=== PATIENT | female | born 1970 | race Caucasian/White ===

== ENCOUNTER → 2021-06-03 11:52 | Outpatient (CLI) | payer OTHER, SELFPAY ==
--- NOTE | ~2021-06-03 | US_ITS ---
EXAMINATION: US pelvic complete w TV DATE: 06/03/2021 12:55 INDICATION: Menorrhagia Comparison:No prior studies for comparison. TECHNIQUE: Multiple transabdominal and endovaginal sonographic images of the pelvis performed. FINDINGS: The uterus measures 9.9 x 4.6 x 5.4 cm. The endometrial complex measures 7 mm. The right ovary measures 2 x 1.6 x 1.4 cm and the left ovary measures 1.8 x 1.4 x 0.9 cm. There are small follicles in each ovary. Normal doppler signal in both ovaries. There is no free fluid in the pelvis. There are no abnormal masses seen on either side. IMPRESSION: 1. Normal pelvic ultrasound. Reviewed, dictated and finalized at location [facility]
== END ==
PROVIDERS: PCP Family Medicine; Visit Provider Obstetrics & Gynecology
DX: N92.0 Excessive and frequent menstruation with regular cycle (principal)
CPT/HCPCS: 76830; 76856

== ENCOUNTER 2022-01-23 00:46 | Day surgery (SDC) | payer BC, SELFPAY ==
[2022-01-17 10:15] VITALS: BMI 22.0
--- NOTE | 2022-01-17 10:24 | PC.NURSE ---
Report to the Outpatient Waiting Room, entrance under the green pavilion located off [facility], at time 0700 on date 01/23/22. OR Time: 0900. - You and your visitor will be asked a series of questions to screen for COVID 19 for your protection. - Only one visitor is allowed at this time. - The patient visitor is requested to leave or wait in car when not with patient. - A mask is required within the hospital. Patients may have clear liquids (water, carbonated beverages, clear teas, apple juice) until 3 hours prior to surgery with a maximum of 20 ounces. - No food from midnight until time of surgery Take the following medications with a SIP of water the morning of surgery: NONE Medications to discontinue per physician: N/A Date to take last dose: N/A Please no make-up, nail danish, hairspray, perfume, deodorant, or body powder the day of surgery. No jewelry (including any body piercings) or valuables the day of surgery, leave them at home. Please take a shower or bath the night before, or the morning of, surgery with an antibacterial soap. Wear comfortable, loose fitting clothing. Children are encouraged to wear pajamas. - Jewelry must be removed prior to entering the operating room. Rings and piercings that are not removed may be cut off. - The hospital will not accept responsibility for valuables. - Please leave all valuables, including medications, at home the day of surgery. If you are going home after surgery, a licensed chuck wagon driver must drive you home. - NO public transportation without another adult. - We recommend that an adult stay with you for 24 hours following discharge. - We also recommend that you do not drive, make important decision, drink alcoholic beverages, or take any drugs that were not prescribed by your health care provider for at least 24 hours after your discharge time. Follow any additional instructions given to you from your surgeon. If you or anyone in your household have experienced Covid symptoms in the past week, please notify your surgeon or the nurse liaison at the phone number below for possible testing. Telephone instructions given to PT - HUGO LOPEZ and asked if any additional questions and then verbalized understanding. Patient advised to call surgeon office or pre surgery nurse liaison [phone] if any additional questions.
--- NOTE | 2022-01-22 10:02 | PM.IMHP ---
H&P: HPI History of Present Illness Date/Time: 01/22/22 10:02 51-year-old female presents for treatment of heavy vaginal bleeding and anemia. Cycles have been 7-10 days with 5-7 days heavy clotting cramping to the point where she bleeds through her clothes and please through on to her bed at night. Has been on norethindrone 5mg daily which has helped to temporize. She also has been diagnosed with anemia is undergoing treatment with her primary care regarding iron infusions. Also discussed salpingectomy for control she states good understanding and understands the permanence failure rate risk in regret. Chief Complaint: menometrorrhagia Review of Systems Review of Systems: All systems reviewed & are unremarkable except as noted in HPI and below PMFSH Past Medical History Medical History Abnormal Pap smear of cervix (09/09/16) ascus neg hpv - Lipoma (~1989) removed from shoulder area Pneumonia (~05/2017) Surgical History Surgical History History of appendectomy (02/08/05) History of cholecystectomy (~2005) History of tonsillectomy (~1984) Family History Family History Father Diabetes mellitus Mother Diabetes mellitus Other Breast cancer paternal aunt Social History Social History Smoking status: Never smoker Second hand tobacco smoke exposure: No Alcohol intake: never Substance use: never Substance use type: does not use Living arrangements: with family Additional living arrangements comments: Additional occupation/education comments: lab sales Gender identity (if verbalized by the patient): Female Sexual Orientation (if Verbalized by the Patient): Straight or Heterosexual Spiritual care concerns: No Meds Home Medications and Allergies Home Medications Medication Instructions Recorded Confirmed Type norethindrone acetate 5 mg tablet 5 mg PO DAILY #30 tabs 01/08/22 01/17/22 Rx Allergies Allergy/AdvReac Type Severity Reaction Status Date / Time tetracycline Allergy Unknown Rash Verified 01/17/22 10:14 Exam Const: General: cooperative, healthy appearing and comfortable Resp: Effort & Inspection: normal respiratory effort Auscultation: clear to auscultation bilaterally Cardio: Rate: regular rate Rhythm: regular rhythm GI: Inspection: normal to inspection Auscultation: normal bowel sounds : External Female Exam: normal external appearance Speculum Exam - Vagina: normal appearance of the vagina Speculum Exam - Cervix: normal appearance of the cervix Bimanual exam- vagina & uterus: normal bimanual exam Bimanual Exam- Adnexa, other: normal adnexae Assessment and Plan Assessment and plan (1) Menometrorrhagia: Code(s): N92.1 - Excessive and frequent menstruation with irregular cycle Status: Acute Assessment and Plan: proceed with hysteroscopy D&C endometrial ablation (2) Iron deficiency anemia: Code(s): D50.9 - Iron deficiency anemia, unspecified Status: Acute (3) Encounter for female sterilization procedure: Code(s): Z30.2 - Encounter for sterilization Status: Acute Assessment and Plan: proceed with laparoscopic bilateral salpingectomy
[2022-01-23] VITALS (8 sets, daily range): BP systolic 91–128; BP diastolic 51–73; PULSE 73–93; RESP 12–16; TEMP 36.5–36.8; O2SAT 99–100
--- NOTE | 2022-01-23 07:12 | WPDHPUPDATE1 ---
History and Physical Update Update Date/Time: 01/23/22 07:12 History and Physical has been reviewed, including an updated exam of the patient. There are NO changes in the patient's condition. Risks, benefits, and alternatives have been discussed and questions answered. Patient agrees to proceed with procedure.
[2022-01-23] MEDS: ACETAMINOPHEN 500 MG TABLET 1000 MG PO (07:35)
[2022-01-23] MEDS: KETOROLAC 15 MG/ML VIAL (*BKC) IV PUSH (07:44)
[2022-01-23] MEDS: LACTATED RINGERS 1,000 ML 30 ML IV CONT (07:46)
--- NOTE | 2022-01-23 07:47 | WPDANESEPPF ---
Anes - Initial Pre Proc Eval Procedure: Operation Date: 01/23/22 09:00 Proposed Procedures p Hysteroscopy Dilation and Curettage, Shyla Endometrial Ablation, Laparoscopic Bilateral Salpingectomy - Thor Ambriz MD Date/Time: 01/23/22 07:47 Surgeon: Thor Ambriz MD Pre Op Diagnosis: Vag Bleeding, Desires Sterilization Patient Data Age: 51 Gender: F Height: 1.73 m Weight: 66.75 kg Last Vital Signs Temp 36.8 C 01/23/22 07:18 Pulse 84 01/23/22 07:18 Resp 16 01/23/22 07:18 BP 124/57 L 01/23/22 07:18 Pulse Ox 100 01/23/22 07:18 O2 Del Method Room Air 01/23/22 07:18 Allergies Allergy/AdvReac Type Severity Reaction Status Date / Time tetracycline Allergy Intermediate Rash Verified 01/23/22 07:31 Home Medications Medication Instructions Recorded Confirmed Type norethindrone acetate 5 mg tablet 5 mg PO DAILY #30 tabs 01/08/22 01/23/22 Rx Patient hx anesthesia problems: none Family hx anesthesia problems: none Results Review: All pre-operative results and documents have been reviewed as part of the pre-operative evaluation. [facility] Past Medical History Medical History Abnormal Pap smear of cervix (09/09/16) ascus neg hpv - Lipoma (~1989) removed from shoulder area Pneumonia (~05/2017) Surgical History Surgical History History of appendectomy (02/08/05) History of cholecystectomy (~2005) History of tonsillectomy (~1984) Family History Family History Father Diabetes mellitus Mother Diabetes mellitus Other Breast cancer paternal aunt Social History Social History Smoking status: Never smoker Second hand tobacco smoke exposure: No Alcohol intake: never Substance use: never Substance use type: does not use Living arrangements: with family Additional living arrangements comments: Additional occupation/education comments: lab sales Gender identity (if verbalized by the patient): Female Sexual Orientation (if Verbalized by the Patient): Straight or Heterosexual Spiritual care concerns: No Anes - Eval Final PreProcedure Day of Procedure 01/23/22 07:47 Patient weight: normal Heart: regular rate and rhythm Lungs: clear to auscultation Airway: Mallampati scale class 1 Neurological: alert and oriented Last oral intake: >/= 8 hours ASA classification: I Emergent: no Anesthetic plan: proceed Anesthesia type and monitoring: general ETT and standard monitoring Results Review: All pre-operative results and documents have been reviewed as part of the pre-operative evaluation. Informed Consent: The patient's anesthetic plan and its attendant risks and benefits were discussed with the patient/family/POA. Questions were solicited and answers provided to the satisfaction of the patient/family/POA.
[2022-01-23 07:52] LABS: Hematocrit 27.5 % (37.0-47.0)
--- NOTE | 2022-01-23 08:34 | W.PM.PROC2 ---
Procedure Note - Detailed Date of Procedure 01/23/22 Pre-op Diagnosis 1. Menometrorrhagia 2. Undesired fertility Post-op Diagnosis Same Procedure Performed 1. Hysteroscopy with endometrial curettings 2. Endometrial ablation 3. Laparoscopic bilateral salpingectomy Surgeon Thor Ambriz MD Anesthesia General Findings 1. Laparoscopic evaluation revealed mildly enlarged uterus/ovaries and tubes noted without abnormality. 2. Hysteroscopic evaluation revealed thickened lining. Description of Procedure Patient was prepped and draped in usual manner for this procedure. Periumbilical and bilateral lower trocar sites were placed under direct visualization. Findings were noted as above and using the Harmonic scalpel mesial salpinx was cauterized and cut bilaterally and tubes were removed without difficulty. There was no bleeding. Gas was allowed to escape instruments removed and incisions approximated using 4-0 Monocryl. Cervix was dilated to allow the hysteroscope to place which did reveal thickened endometrium with no specific polyps or fibroids. Curettings were obtained. Once this was performed the Shyla instrument was placed and endometrial ablation was performed with good results. At this point patient was sent to recovery room in stable condition. Estimated Blood Loss 50 Drains No Packing No Pathology Yes Complications No immediate complications Condition Stable Disposition PACU [facility] Billing Surgery - Charge Forward: Surgery Billing
[2022-01-23] MEDS: ceFAZolin 2 GM/D5W 50 ML 2 GM/50 ML BAG IVPB (09:12)
== END 2022-01-23 11:55 | disposition home or self-care (01) ==
PROVIDERS: Anesthesiology; PCP Family Medicine; Visit Provider Obstetrics & Gynecology
PROC: 0UDB8ZZ Extraction of Endometrium, Via Natural or Artificial Opening Endoscopic (ICD-10-PCS; CPT 58558; principal; 2022-01-23 09:00)
DX: N92.1 Excessive and frequent menstruation with irregular cycle (principal); Z30.2 Encounter for sterilization; N72 Inflammatory disease of cervix uteri; N87.9 Dysplasia of cervix uteri, unspecified; D50.9 Iron deficiency anemia, unspecified
CPT/HCPCS: 58563; 58661; 36415; 85014; 85018; 88302; 88305; A9270; J0690; J1100; J1885; J2250; J2405; J2704; J2710; J3010; J7030; J7120

== ENCOUNTER 2022-06-02 01:18 | Day surgery (SDC) | payer BC, SELFPAY ==
[2022-05-27 09:12] VITALS: BMI 22.4
[2022-06-02 11:12] VITALS: BP 140/66; PULSE 88; RESP 18; TEMP 36.4; O2SAT 99; BMI 22.2
[2022-06-02] MEDS: LACTATED RINGERS 1,000 ML 150 ML IV CONT (11:35)
--- NOTE | 2022-06-02 12:06 | WPDANESEPPF ---
Anes - Initial Pre Proc Eval Procedure: Operation Date: 06/02/22 12:30 Proposed Procedures p Colonoscopy - Mitchell Jose MD Date/Time: 06/02/22 12:06 Surgeon: Mitchell Jose MD Pre Op Diagnosis: KAYE Patient Data Age: 51 Gender: F Height: 1.73 m Weight: 66.3 kg Last Vital Signs Temp 97.5 F L 06/02/22 11:12 Pulse 88 06/02/22 11:12 Resp 18 06/02/22 11:12 BP 140/66 06/02/22 11:12 Pulse Ox 99 06/02/22 11:12 O2 Del Method Room Air 06/02/22 11:12 Allergies Allergy/AdvReac Type Severity Reaction Status Date / Time tetracycline Allergy Intermediate Rash Verified 06/02/22 11:20 Home Medications Medication Instructions Recorded Confirmed Type ferrous sulfate 325 mg (65 mg 325 mg PO DAILY 05/26/22 06/02/22 History iron) tablet Patient hx anesthesia problems: none Family hx anesthesia problems: none Results Review: All pre-operative results and documents have been reviewed as part of the pre-operative evaluation. [facility] Past Medical History Medical History (Updated 05/26/22 @ 10:26 by Thor Ambriz MD) Abnormal Pap smear of cervix (09/09/16) ascus neg hpv - Lipoma (~1989) removed from shoulder area Pneumonia (~05/2017) Screening mammogram, encounter for Surgical History Surgical History History of appendectomy (02/08/05) History of cholecystectomy (~2005) History of hysteroscopy (01/23/22) Hscope D&C/ Ablation/ Sailpingectomy History of tonsillectomy (~1984) Family History Family History Father Diabetes mellitus Mother Diabetes mellitus Other Breast cancer paternal aunt Social History Social History Smoking status: Never smoker Second hand tobacco smoke exposure: No Alcohol intake: never Substance use: never Substance use type: does not use Living arrangements: with family Additional living arrangements comments: Additional occupation/education comments: lab sales Gender identity (if verbalized by the patient): Female Sexual Orientation (if Verbalized by the Patient): Straight or Heterosexual Spiritual care concerns: No Anes - Eval Final PreProcedure Day of Procedure 06/02/22 12:06 Patient weight: normal Heart: regular rate and rhythm Lungs: clear to auscultation Airway: Mallampati scale class II Neurological: alert and oriented Last oral intake: >/= 8 hours ASA classification: II Emergent: no Anesthetic plan: proceed Anesthesia type and monitoring: general GIVS and standard monitoring Results Review: All pre-operative results and documents have been reviewed as part of the pre-operative evaluation. Informed Consent: The patient's anesthetic plan and its attendant risks and benefits were discussed with the patient/family/POA. Questions were solicited and answers provided to the satisfaction of the patient/family/POA.
--- NOTE | 2022-06-02 12:12 | PM.HPGS ---
History of Present Illness History of Present Illness Consent: Risks, benefits, and alternatives have been discussed and questions answered. Patient agrees to proceed with procedure. Chief complaint: CAMILLE Narrative: Mabel Faustin is a 51 year old female here for first screening colonoscopy, also had camille when she had endometrial bleeding but treated with ablation Review of Systems Constitutional: Constitutional: Denies headache(s) and Denies weakness Eyes: Eyes: Denies blurry vision ENT: Reports Normal hearing present, Denies headache(s) and Denies neck pain Cardiovascular: Cardiovascular: Denies chest pain and Denies dyspnea Respiratory: Respiratory: Denies dyspnea Gastrointestinal: Gastrointestinal: Reports no additional gastrointestinal complaints Genitourinary: Genitourinary: Denies dysuria Musculoskeletal: Musculoskeletal: Denies neck pain Integumentary/Breasts: Skin/Breast: Denies dry skin Neurologic: Reports Normal hearing present, Denies headache(s) and Denies weakness Psychiatric: Psychiatric: Denies anxiety Endocrine: Endocrine: Denies change in body appearance Hematologic/Lymphatic: Hematologic/Lymphatic: Denies easy bleeding Allergic/Immunologic: Allergic/Immunologic: Denies urticaria PMFSH Past Medical History Medical History (Updated 06/02/22 @ 12:13 by Mitchell Jose MD) Abnormal Pap smear of cervix (09/09/16) ascus neg hpv - Colon cancer screening Lipoma (~1989) removed from shoulder area Pneumonia (~05/2017) Screening mammogram, encounter for Surgical History Surgical History History of appendectomy (02/08/05) History of cholecystectomy (~2005) History of hysteroscopy (01/23/22) Hscope D&C/ Ablation/ Sailpingectomy History of tonsillectomy (~1984) Family History Family History Father Diabetes mellitus Mother Diabetes mellitus Other Breast cancer paternal aunt Social History Social History Smoking status: Never smoker Second hand tobacco smoke exposure: No Alcohol intake: never Substance use: never Substance use type: does not use Living arrangements: with family Additional living arrangements comments: Additional occupation/education comments: lab sales Gender identity (if verbalized by the patient): Female Sexual Orientation (if Verbalized by the Patient): Straight or Heterosexual Spiritual care concerns: No Meds Home Medications and Allergies Home Medications Medication Instructions Recorded Confirmed Type ferrous sulfate 325 mg (65 mg 325 mg PO DAILY 05/26/22 06/02/22 History iron) tablet Allergies Allergy/AdvReac Type Severity Reaction Status Date / Time tetracycline Allergy Intermediate Rash Verified 06/02/22 11:20 Vital Signs Vital Signs - 24 hr 06/02/22 11:12 Temperature 97.5 F L Pulse Rate 88 Respiratory Rate 18 Blood Pressure 140/66 Pulse Oximetry 99 Oxygen Delivery Room Air Exam Const: General: comfortable and no acute distress HENMT: Face/Nose/Sinus: Normal nares present Eyes: General: appearance normal, both eyes and all related structures Neck: Neck: no JVD Resp: Auscultation: clear to auscultation bilaterally Cardio: Rate: regular rate Rhythm: regular rhythm GI: Inspection: non-distended GI Palp: Yes Soft to palpation Skin: General skin exam: normal color Neuro: General: gait normal Speech: normal speech Extrem: General: normal to inspection Psych: Mental Status: mental status grossly normal Assessment and Plan Assessment and plan (1) Colon cancer screening: Code(s): Z12.11 - Encounter for screening for malignant neoplasm of colon Status: Acute Assessment and Plan: colonoscopy (2) Iron deficiency anemia: Code(s): D50.9 - Iron deficiency anemia,
[2022-06-02 12:30] VITALS: BP 103/62; PULSE 74; RESP 15; O2SAT 96
[2022-06-02 12:40] VITALS: BP 108/56; PULSE 76; RESP 19; O2SAT 97
[2022-06-02 12:50] VITALS: BP 110/50; PULSE 83; RESP 19; O2SAT 100
== END 2022-06-02 12:55 | disposition home or self-care (01) ==
PROVIDERS: PCP Family Medicine; Visit Provider Internal Medicine Gastroenterology
PROC: 0DJD8ZZ Inspection of Lower Intestinal Tract, Via Natural or Artificial Opening Endoscopic (ICD-10-PCS; CPT 45378; principal; 2022-06-02 12:30)
DX: Z12.11 Encounter for screening for malignant neoplasm of colon (principal); D50.9 Iron deficiency anemia, unspecified
CPT/HCPCS: 45378; J2704; J7120

== ENCOUNTER 2024-01-03 19:05 | Emergency (ER) | payer SELFPAY ==
[2024-01-03 19:17] VITALS: BP 132/76; PULSE 108; RESP 16; TEMP 36.9; O2SAT 98
--- NOTE | 2024-01-03 19:38 | ED.SKABFB ---
HPI - Skin/Abscess/Foreign Bdy General Chief complaint: Skin/Abscess/Foreign Body Stated complaint: Poison Amanda Time Seen by Provider: 01/03/24 19:30 Source: patient Mode of arrival: ambulatory Limitations: no limitations History of Present Illness HPI narrative: Mabel is a 53-year-old female patient presenting to the clinic today with complaints of a rash on her hands and arms. She has been suffering from this rash for approximately 2-3 weeks. States that 1st she thought it was poison amanda. Got a prescription for Medrol Dosepak and some triamcinolone cream in the symptoms are improved however she finished that treatment and she started to get more rash to her knuckles. Was seen again in urgent care and they gave her prescription for mupirocin cream. Patient states that she saw family member the other day who is the urologist and he stated that it looked more possibly a like a fungal infection. She is concerned that it may be a fungal infection versus a dermatitis. States the rash is very itchy. No known fever or chills. Related Data Home Medications Medication Instructions Recorded Confirmed chlorhexidine gluconate 0.12 % 1 ml PO DIRECTED 01/03/24 01/03/24 mouthwash mupirocin 2 % topical ointment 2 applic topical DAILY 01/03/24 01/03/24 triamcinolone acetonide 0.5 % 1 applic topical DIRECTED 01/03/24 01/03/24 topical ointment Allergies Allergy/AdvReac Type Severity Reaction Status Date / Time tetracycline Allergy Intermediate Rash Verified 01/03/24 19:12 Review of Systems Review of Systems: Pertinent positives per HPI. Patient denies any fever, chills, rash, headache, visual changes, dizziness, cough, runny nose, sore throat, shortness of breath, chest pain, palpitations, nausea, vomiting, diarrhea, constipation, abdominal pain, or any urinary issues. [facility] Past Medical History Medical History Abnormal Pap smear of cervix (09/09/16) ascus neg hpv - Breast calcification, left Colon cancer screening Lipoma (~1989) removed from shoulder area Pneumonia (~05/2017) Screening mammogram, encounter for Surgical History Surgical History H/O breast biopsy scheduled - 10/13/2022 - left breast History of appendectomy (02/08/05) History of cholecystectomy (~2005) History of hysteroscopy (01/23/22) Hscope D&C/ Ablation/ Sailpingectomy History of tonsillectomy (~1984) Family History Family History Father Diabetes mellitus Mother Diabetes mellitus Other Breast cancer paternal aunt Social History Social History Smoking status: Never smoker Second hand tobacco smoke exposure: No Alcohol intake: never Substance use: never Substance use type: does not use Living arrangements: with family Additional living arrangements comments: 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 There is no relevant family history pertinent to the patient complaint. Exam Narrative: General: Well-developed, well nourished, in no apparent distress Head: Normocephalic, atraumatic. Cardio: Regular rate and rhythm, s1 and s2 normal, no murmur appreciated. Resp: Clear to auscultation bilaterally, no rhonchi, rales, wheezing or rubs. Integumentary: [place], warm, and dry, red raised blister-like lesions with some circular lesions with central clearing to the bilateral knuckles, hands, and forearm. Course Course Emergency Course:
== END 2024-01-03 19:43 | disposition home or self-care (01) ==
PROVIDERS: Emergency Provider Nurse Practitioner Family; PCP Family Medicine
DX: L25.9 Unspecified contact dermatitis, unspecified cause (principal)
CPT/HCPCS: 99213; G0463

== ENCOUNTER 2024-06-27 13:56 | Outpatient (CLI) | payer OTHER, SELFPAY ==
[2024-06-27 14:08] LABS: Basophils Absolute Auto 0.1 K/mm3 (0.0-0.1); Basophils Percent Auto 0.9 % (0.2-1.2); Eosinophils Absolute Auto 0.2 K/mm3 (0-0.3); Hematocrit 45.1 % (37.0-47.0); Hemoglobin 15.4 g/dL (12.0-15.0); Immature Granulocyte Absolute 0.01 K/mm3 (0.00-0.031); Immature Granulocyte Percent A 0.2 % (0-0.5); Lymphocytes Absolute Auto 1.45 K/mm3 (0.9-3.2); Mean Corpuscular HGB Conc 34.1 g/dl (32-36); Mean Corpuscular Hemoglobin 31.8 pg (26-34); Mean Corpuscular Volume 93.2 fl (80-100); Mean Platelet Volume 9.7 fl (7.4-10.4); Monocytes Absolute Auto 0.5 K/mm3 (0.1-0.6); Monocytes Percent Auto 9.1 % (2.6-8.5); Neutrophils Absolute Auto 3.4 K/mm3 (1.3-6.7); Neutrophils Percent Auto 60.8 % (45.5-73.1); Platelet Count Result 206 k/mm3 (150-375); Red Blood Count 4.84 M/mm3 (4.2-5.4); White Blood Count 5.6 K/mm3 (4.5-10.0)
[2024-06-27 16:39] LABS: Iron 133 ug/dL (37-170)
[2024-06-27 16:48] LABS: Percent Iron Saturation 43 % (20-50)
[2024-06-27 17:53] LABS: Folic Acid 8.6 ng/mL (2.76->20)
== END 2024-06-27 13:57 | disposition home or self-care (01) ==
LOC: ANHLAB 13:58
PROVIDERS: PCP Family Medicine; Visit Provider Internal Medicine Hematology & Oncology
DX: D50.0 Iron deficiency anemia secondary to blood loss (chronic) (principal)
CPT/HCPCS: 36415; 82607; 82728; 82746; 83540; 83550; 85025

== ENCOUNTER 2025-01-02 13:57 | Outpatient (CLI) | payer BC, SELFPAY ==
[2025-01-02 14:14] LABS: Hematocrit 41.3 % (37.0-47.0); Hemoglobin 14.1 g/dL (12.0-15.0); Mean Corpuscular HGB Conc 34.1 g/dl (32-36); Mean Corpuscular Hemoglobin 31.8 pg (26-34); Platelet Count Result 191 k/mm3 (150-375); Red Blood Count 4.44 M/mm3 (4.2-5.4); Red Cell Distribution Width 12.1 % (11.5-14.5); White Blood Count 6.4 K/mm3 (4.5-10.0)
--- OUTSIDE RECORDS SUMMARY | 2025-01-02 15:14 | XMS_ITS | Clinical Summary ---
Author Organization [facility] Address [address] [place] [address] Care Team Providers Care Paper Latcher Name Role Phone Cee Jay MD Primary Care Provider [phone] Source Comments [facility],non-owned Affiliates and Associated Physician Practices is amultiple site organization consisting of ambulatory clinics and hospital sitesin [place], [place], [place] and [place]. This disclosure is being madepursuant to the Care Everywhere program and may not contain all information available regarding this patient. Last updated 18.[facility] Ti[place] Social History Tobacco Use Types Packs/Day Years Used Date Smoking Tobacco: Never Assessed Comments Unknown Sex and Gender Information Value Date Recorded Sex Assigned at Not on file Legal Sex Female 9:28 AM CDT Gender Identity Not on file Sexual Orientation Not on file Plan of Treatment Health Maintenance Due Date Last Done Comments COLOGUARD (AGES 45-75) - COL ON CA SCREENING 1972 COLON MONITORING 1972 COLONOSCOPY - COLON CA SCREENING 1972 CT COLONOGRAPHY - COLON CA SCREENING 1972 Colorectal Cancer Screening 1972 FIT - COLON CA SCREENING 1972 FLEX SIG - COLON CA SCREENING 1972 LIPID TESTING 1972 MAMMOGRAM 1972 PAP SMEAR 1972 HIV SCREENING 09/28/1987 HEPATITIS C SCREENING 09/23/1990 DTAP/TDAP/TD VACCINES (1 - Tdap) 09/28/1991 HEPATITIS B VACCINE (1 of 3 - 19+ 3-dose series) 09/28/1991 PNEUMOCOCCAL VACCINE 50+ (1 of 1 - PCV) 2022 ZOSTER VACCINE (1 of 2) 2022 COVID-19 VACCINE (1 - 2023-2 5 season) 2024 DEPRESSION SCREENING 07/27/2024 INFLUENZA VACCINE (Season Ended) 2025 04/17/2022, 05/03/2019 HIB VACCINE Aged Out No longer eligi ble based on patient's age to complete this topic HPV VACCINE Aged Out No longer eligi ble based on patient's age to complete this topic MENINGOCOCCAL (Group B) VACCINE SHARED DECISION-MAKING Aged Out No longer eligible based on patient's age to complete this topic MENINGOCOCCAL GROUPS A/C/Y/W VACCINE Aged Out No longer eligible b ased on patient's age to complete this topic Care Teams Paper Latcher Relationship Specialty Start Date End Date Cee Jay MD [address] [place] [address] [place] [id number] PCP - General 01/31/22
--- OUTSIDE RECORDS SUMMARY | 2025-01-02 15:14 | XMS_ITS | Data Portability ---
Author Organization [facility], Main Office Address [address] [place] [address] Assessment No assessment recorded. Plan of Treatment Reminders Order Date Submit Date Provider Last Modified By Organization Details Last Modified Time Details Appointments None record ed. Lab None record ed. Referral None record ed. Procedures None record ed. Surgeries None record ed. Imaging None record ed. Medication Orders None record ed. Patient TargetsNo targets recorded. Patient InstructionsNo instructions recorded. Reason for Referral None Reported. Results Created Date Observation Date Name Description Value Unit Range Abnormal Flag Note LastModifiedBy Organization Detail LastModifiedTime 05/24/20 21 05/28/2021 IGP, APTIM A HPV diagnosis: commen t NEGAT EULA FOR INTRA EPITH ELIAL SHALINI Sales OR BOBBY HAYES . Not Available [facility] ([facility]) [address] [facility], [place], [address], 05/28/2021 18:08:35 05/24/20 21 05/28/2021 IGP, APTIM A HPV specimen adequacy: commen t Satis facto ry for evalu ation . Endoc ervic al and/o r squam ous metap lasti c cells (endo cervi abimael compo nent) are prese nt. Not Available [facility] ([facility]) [address] [place], [address], 05/28/2021 18:08:35 05/24/20 21 05/28/2021 IGP, APTIM A HPV clinician provided ICD10: commen t Z01.4 19 Not Available [facility] ([facility]) [address] [facility], [place], [address], 05/28/2021 18:08:35 05/24/20 21 05/28/2021 IGP, APTIM A HPV performed by: georgina White ns, Cytot lg jane (ASCP ) Not Available [facility] ([facility]) [address] [place], [address], 05/28/2021 18:08:35 05/24/20 21 05/28/2021 IGP, APTIM A HPV . . Not Available [facility] ([facility]) [address] [place], [address], 05/28/2021 18:08:35 05/24/2005/28/2021 IGP, APTIM A HPV note: georgina jane The Pap smear is a scree saba test desig luis to aid in the detec tion of wendy ligna nt and malig nant condi tions of the uteri ne cervi x. It is not a diagn ostic proce dure and shoul d not be used as the sole means of detec ting cervi abimael cance r. Both false -posi tive and false -nega tive repor ts do occur . Not Available [facility] ([facility]) [address] [place], [address], 05/28/2021 18:08:35 05/24/2005/28/2021 IGP, APTIM A HPV test methodology: georgina jane This liqui d based ThinP rep(R ) pap test was scree luis with the use of an image guide isabel peacock. Not Available [facility] ([facility]) [address] [place], [address], 05/28/2021 18:08:35 05/24/20 21 05/28/2021 IGP, APTIM A HPV HPV aptima negati ve negati ve This nucle ic acid ampli ficat ion test detec ts fourt een high- risk HPV types (16,1 8,31, 33,35 ,39,4 5,51, 52,56 ,58,5 9,66, 68) witho ut matthewe shandra marinelli . Not Available [facility] ([facility]) [address] [facility], [place], [address], 05/28/2021 18:08:35 12/25/19 22 12/24/2021 ISSA TIN ferritin 3 NG/mL 6.24-1 37 low Not Available [facility] (Lab) [address] [place], [address], 12/24/2021 11:56:30 12/25/19 22 12/24/2021 IRON/ TIBC PANEL total iron binding capacity 432 mcg/d L 265-47 5 Not Available [facility] (Lab) [address] [place], [address], 12/24/2021 11:32:27 12/25/19 22 12/24/2021 IRON/ TIBC PANEL % transferrin saturation 4 % 20-55 low Not Available [facility] (Lab) [address] [place], [address], 12/24/2021 11:32:27 12/25/19 22 12/24/2021 IRON/ TIBC PANEL unsaturated iron bind capacity 414 mcg/d L 126-38 2 high Not Available [facility] (Lab) [address] [place], [address], 12/24/2021 11:32:27 12/25/19 22 12/24/2021 IRON/ TIBC PANEL iron 18 mcg/d L 42-175 low Not Available [facility] (Lab) [address] [place], [address], 12/24/2021 11:32:27 12/25/19 22 12/24/2021 CBC/C OMPLE TE BLD COUNT W/DIF F white blood cells 4.4 x10'3 /uL 4.2-10 .8 Not Available [facility] (Lab) [address] [place], [address], 12/24/2021 10:49:21 12/25/19 22 12/24/2021 CBC/C OMPLE TE BLD COUNT W/DIF F red blood cells 2.99 x10'6 /uL 3.80-5 .20 low Not Available [facility] (Lab) [address] [place], [address], 12/24/2021 10:49:21 12/25/19 22 12/24/2021 CBC/C OMPLE TE BLD COUNT W/DIF F hemoglobin 7.6 g/dL 12.0-1 5.6 low Not Available [facility] (Lab) [address] [place], [address], 12/24/2021 10:49:21 12/25/19 22 12/24/2021 CBC/C OMPLE TE BLD COUNT W/DIF F hematocrit 24.5 % 35.7-4 5.7 low Not Available [facility] (Lab) [address] [place], [address], 12/24/2021 10:49:21 12/25/19 22 12/24/2021 CBC/C OMPLE TE BLD COUNT W/DIF F mean red cell volume 81.9 fL 82.0-9 9.0 low Not Available [facility] (Lab) [address] [place], [address], 12/24/2021 10:49:21 12/25/19 22 12/24/2021 CBC/C OMPLE TE BLD COUNT W/DIF F mean red cell hemoglobin 25.4 pg 27.0-3 3.0 low Not Available [facility] (Lab) [address] [place], [address], 12/24/2021 10:49:21 12/25/19 22 12/24/2021 CBC/C OMPLE TE BLD COUNT W/DIF F mean RBC HGB concentratio n 31.0 g/dL 31.0-3 6.0 Not Available [facility] (Lab) [address] [place], [address], 12/24/2021 10:49:21 12/25/19 22 12/24/2021 CBC/C OMPLE TE BLD COUNT W/DIF F red cell distribution width 15.7 % 11.8-1 5.5 high Not Available [facility] (Lab) [address] [place], [address], 12/24/2021 10:49:21 12/25/19 22 12/24/2021 CBC/C OMPLE TE BLD COUNT W/DIF F platelets 446 x10'3 /uL 150-40 0 high Not Available [facility] (Lab) [address] [place], [address], 12/24/2021 10:49:21 12/25/19 22 12/24/2021 CBC/C OMPLE TE BLD COUNT W/DIF F mean platelet volume 9.0 fL 9.0-12 .4 Not Available [facility] (Lab) [address] [place], [address], 12/24/2021 10:49:21 12/25/19 22 12/24/2021 CBC/C OMPLE TE BLD COUNT W/DIF F neutrophils 57.5 % 39.0-7 2.0 Not Available [facility] (Lab) [address] [place], [address], 12/24/2021 10:49:21 12/25/19 22 12/24/2021 CBC/C OMPLE TE BLD COUNT W/DIF F lymphocytes 25.9 % 16.0-4 7.0 Not Available [facility] (Lab) [address] [place], [address], 12/24/2021 10:49:21 12/25/19 22 12/24/2021 CBC/C OMPLE TE BLD COUNT W/DIF F monocytes 9.4 % 5.0-12 .0 Not Available [facility] (Lab) [address] [place], [address], 12/24/2021 10:49:21 12/25/19 22 12/24/2021 CBC/C OMPLE TE BLD COUNT W/DIF F eosinophils 5.9 % 1.0-7. 0 Not Available [facility] (Lab) [address] [place], [address], 12/24/2021 10:49:21 12/25/19 22 12/24/2021 CBC/C OMPLE TE BLD COUNT W/DIF F basophils 1.1 % 0.0-2. 0 Not Available [facility] (Lab) [address] [place], [address], 12/24/2021 10:49:21 12/25/19 22 12/24/2021 CBC/C OMPLE TE BLD COUNT W/DIF F immature granulocytes 0.2 % 0.00-0 .50 Not Available [facility] (Lab) [address] [place], [address], 12/24/2021 10:49:21 12/25/19 22 12/24/2021 CBC/C OMPLE TE BLD COUNT W/DIF F neutrophils, absolute count 2.51 x10'3 /uL 1.5-8. 0 Not Available [facility] (Lab) [address] [place], [address], 12/24/2021 10:49:21 12/25/19 22 12/24/2021 CBC/C OMPLE TE BLD COUNT W/DIF F lymphocytes, absolute count 1.13 x10'3 /uL 1.07-3 .43 Not Available [facility] (Lab) [address] [place], [address], 12/24/2021 10:49:21 12/25/19 22 12/24/2021 CBC/C OMPLE TE BLD COUNT W/DIF F monocytes, absolute count 0.41 x10'3 /uL 0.29-0 .99 Not Available [facility] (Lab) [address] [place], [address], 12/24/2021 10:49:21 12/25/19 22 12/24/2021 CBC/C OMPLE TE BLD COUNT W/DIF F eosinophils, absolute count 0.26 x10'3 /uL 0.02-0 .53 Not Available [facility] (Lab) [address] [place], [address], 12/24/2021 10:49:21 12/25/19 22 12/24/2021 CBC/C OMPLE TE BLD COUNT W/DIF F basophils, absolute count 0.05 x10'3 /uL 0.01-0 .08 Not Available [facility] (Lab) [address] [place], [address], 12/24/2021 10:49:21 12/25/19 22 12/24/2021 CBC/C OMPLE TE BLD COUNT W/DIF F immature granulocytes ,absolute 0.01 x10'3 /uL 0.00-0 .05 Not Available [facility] (Lab) [address] [place], [address], 12/24/2021 10:49:21 12/25/19 22 12/24/2021 CBC/C OMPLE TE BLD COUNT W/DIF F nucleated red blood cells 0.0 % -0 Not Available [facility] (Lab) [address] [place], [address], 12/24/2021 10:49:21 12/25/19 22 12/24/2021 CBC/C OMPLE TE BLD COUNT W/DIF F NRBC# 0.00 x10'3 /uL Not Available [facility] (Lab) [address] [place], [address], 12/24/2021 10:49:21 04/21/20 22 04/22/2022 CBC/C OMPLE TE BLD COUNT W/DIF F white blood cells 4.4 x10'3 /uL 4.2-10 .8 Not Available [facility] (Lab) [address] [place], [address], 04/22/2022 10:49:00 04/21/20 22 04/22/2022 CBC/C OMPLE TE BLD COUNT W/DIF F red blood cells 4.78 x10'6 /uL 3.80-5 .20 Not Available [facility] (Lab) [address] [place], [address], 04/22/2022 10:49:00 04/21/20 22 04/22/2022 CBC/C OMPLE TE BLD COUNT W/DIF F hemoglobin 9.4 g/dL 12.0-1 5.6 low Not Available [facility] (Lab) [address] [place], [address], 04/22/2022 10:49:00 04/21/20 22 04/22/2022 CBC/C OMPLE TE BLD COUNT W/DIF F hematocrit 33.1 % 35.7-4 5.7 low Not Available [facility] (Lab) [address] [place], [address], 04/22/2022 10:49:00 04/21/20 22 04/22/2022 CBC/C OMPLE TE BLD COUNT W/DIF F mean red cell volume 69.2 fL 82.0-9 9.0 low Not Available [facility] (Lab) [address] [place], [address], 04/22/2022 10:49:00 04/21/20 22 04/22/2022 CBC/C OMPLE TE BLD COUNT W/DIF F mean red cell hemoglobin 19.7 pg 27.0-3 3.0 low Not Available [facility] (Lab) [address] [place], [address], 04/22/2022 10:49:00 04/21/20 22 04/22/2022 CBC/C OMPLE TE BLD COUNT W/DIF F mean RBC HGB concentratio n 28.4 g/dL 31.0-3 6.0 low Not Available [facility] (Lab) [address] [place], [address], 04/22/2022 10:49:00 04/21/20 22 04/22/2022 CBC/C OMPLE TE BLD COUNT W/DIF F red cell distribution width 20.8 % 11.8-1 5.5 high Not Available [facility] (Lab) [address] [place], [address], 04/22/2022 10:49:00 04/21/20 22 04/22/2022 CBC/C OMPLE TE BLD COUNT W/DIF F platelets 359 x10'3 /uL 150-40 0 Not Available [facility] (Lab) [address] [place], [address], 04/22/2022 10:49:00 04/21/20 22 04/22/2022 CBC/C OMPLE TE BLD COUNT W/DIF F mean platelet volume 9.1 fL 9.0-12 .4 Not Available [facility] (Lab) [address] [place], [address], 04/22/2022 10:49:00 04/21/20 22 04/22/2022 CBC/C OMPLE TE BLD COUNT W/DIF F neutrophils 61.7 % 39.0-7 2.0 Not Available [facility] (Lab) [address] [place], [address], 04/22/2022 10:49:00 04/21/20 22 04/22/2022 CBC/C OMPLE TE BLD COUNT W/DIF F lymphocytes 24.1 % 16.0-4 7.0 Not Available [facility] (Lab) [address] [place], [address], 04/22/2022 10:49:00 04/21/20 22 04/22/2022 CBC/C OMPLE TE BLD COUNT W/DIF F monocytes 10.6 % 5.0-12 .0 Not Available [facility] (Lab) [address] [place], [address], 04/22/2022 10:49:00 04/21/20 22 04/22/2022 CBC/C OMPLE TE BLD COUNT W/DIF F eosinophils 2.5 % 1.0-7. 0 Not Available [facility] (Lab) [address] [place], [address], 04/22/2022 10:49:00 04/21/20 22 04/22/2022 CBC/C OMPLE TE BLD COUNT W/DIF F basophils 0.9 % 0.0-2. 0 Not Available [facility] (Lab) [address] [place], [address], 04/22/2022 10:49:00 04/21/20 22 04/22/2022 CBC/C OMPLE TE BLD COUNT W/DIF F immature granulocytes 0.2 % 0.00-0 .50 Not Available [facility] (Lab) [address] [place], [address], 04/22/2022 10:49:00 04/21/20 22 04/22/2022 CBC/C OMPLE TE BLD COUNT W/DIF F neutrophils, absolute count 2.74 x10'3 /uL 1.5-8. 0 Not Available [facility] (Lab) [address] [place], [address], 04/22/2022 10:49:00 04/21/20 22 04/22/2022 CBC/C OMPLE TE BLD COUNT W/DIF F lymphocytes, absolute count 1.07 x10'3 /uL 1.07-3 .43 Not Available [facility] (Lab) [address] [place], [address], 04/22/2022 10:49:00 04/21/20 22 04/22/2022 CBC/C OMPLE TE BLD COUNT W/DIF F monocytes, absolute count 0.47 x10'3 /uL 0.29-0 .99 Not Available [facility] (Lab) [address] [place], [address], 04/22/2022 10:49:00 04/21/20 22 04/22/2022 CBC/C OMPLE TE BLD COUNT W/DIF F eosinophils, absolute count 0.11 x10'3 /uL 0.02-0 .53 Not Available [facility] (Lab) [address] [place], [address], 04/22/2022 10:49:00 04/21/20 22 04/22/2022 CBC/C OMPLE TE BLD COUNT W/DIF F basophils, absolute count 0.04 x10'3 /uL 0.01-0 .08 Not Available [facility] (Lab) [address] [place], [address], 04/22/2022 10:49:00 04/21/20 22 04/22/2022 CBC/C OMPLE TE BLD COUNT W/DIF F immature granulocytes ,absolute 0.01 x10'3 /uL 0.00-0 .05 Not Available [facility] (Lab) [address] [place], [address], 04/22/2022 10:49:00 04/21/2004/22/2022 CBC/C OMPLE TE BLD COUNT W/DIF F nucleated red blood cells 0.0 % -0 Not Available [facility] (Lab) [address] [place], [address], 04/22/2022 10:49:00 04/21/20 22 04/22/2022 CBC/C OMPLE TE BLD COUNT W/DIF F NRBC# 0.00 x10'3 /uL Not Available [facility] (Lab) [address] [place], [address], 04/22/2022 10:49:00 04/21/20 22 04/22/2022 CBC/C OMPLE TE BLD COUNT W/DIF F poikilocytos is 1+ Not Available [facility] (Lab) [address] [place], [address], 04/22/2022 10:49:00 04/21/20 22 04/22/2022 CBC/C OMPLE TE BLD COUNT W/DIF F hypochromia 3+ Not Available [facility] (Lab) [address] [place], [address], 04/22/2022 10:49:00 04/21/20 22 04/22/2022 CBC/C OMPLE TE BLD COUNT W/DIF F microcytosis 2+ Not Available [facility] (Lab) [address] [place], [address], 04/22/2022 10:49:00 04/21/20 22 04/22/2022 CBC/C OMPLE TE BLD COUNT W/DIF F ovalocytes occasi onal Not Available [facility] (Lab) [address] [place], [address], 04/22/2022 10:49:00 04/21/20 22 04/22/2022 CBC/C OMPLE TE BLD COUNT W/DIF F schistocytes occasi onal Not Available [facility] (Lab) [address] [place], [address], 04/22/2022 10:49:00 04/21/20 22 04/21/2022 ISSA TIN ferritin 4 NG/mL 6.24-1 37 low Not Available [facility] (Lab) [address] [place], [address], 04/21/2022 13:35:10 04/21/20 22 04/21/2022 IRON/ TIBC PANEL total iron binding capacity 491 mcg/d L 265-47 5 high Not Available [facility] (Lab) [address] [place], [address], 04/21/2022 13:33:02 04/21/20 22 04/21/2022 IRON/ TIBC PANEL % transferrin saturation 4 % 20-55 low Not Available [facility] (Lab) [address] [place], [address], 04/21/2022 13:33:02 04/21/20 22 04/21/2022 IRON/ TIBC PANEL unsaturated iron bind capacity 469 mcg/d L 126-38 2 high Not Available [facility] (Lab) [address] [place], [address], 04/21/2022 13:33:02 04/21/20 22 04/21/2022 IRON/ TIBC PANEL iron 22 mcg/d L 42-175 low Not Available [facility] (Lab) [address] [place], [address], 04/21/2022 13:33:02 06/03/20 21 06/03/2021 US, pelshanae s, trans abdom inal + trans vagin al No observ ation record ed. [id number] [facility] [address], [place], [address], 09/24/2022 06:57:25 06/03/20 21 06/03/2021 US, donald cleary, franck s, compl ete No observ ation record ed. [id number] [facility] [address], [place], [address], 09/24/2022 06:57:25 Result Notes None recorded. Problems Name Problem SNOMED Code Status Onset Date Resolution Date Notes Provider Name and Address Organization Details Recorded Time Contusion 706300722 Active Not Available [facility] 3 06:48:32 Iron deficiency anemia 07059541 Active 2017 Not Available [facility] 3 06:48:32 Contact dermatitis caused by urushiol from [facility] 595483560 Active 2022 Dhruv Nolan, [employer] [address] [facility], [facility] [address], [place], [address] , [facility] [employer] 3 12:57:40 Problem Notes None recorded. Procedures Surgical History Date Name Laterality Status Provider Name and Address Organization Details Recorded Time 05/24/20 21 Date of Last Pap Smear completed Not Available [facility] 09/24/2022 06:41:36 08/14/19 19 Most Recent Mammogram completed Not Available [facility] 09/24/2022 06:41:37 07/27/19 06 Cholecystectomy completed Not Available [facility] 09/24/2022 06:41:39 02/09/20 05 Appendectomy completed Not Available [facility] 09/24/2022 06:41:39 07/27/18 90 other completed Not Available [facility] 09/24/2022 06:41:39 07/27/18 85 Tonsillectomy completed Not Available [facility] 09/24/2022 06:41:39 Imaging Results None recorded. Procedure Notes None recorded. Medical Equipment None Reported. Allergies Allergen ID Allergen Name Allergen Category Reaction Reaction Severity Criticality Documentation Date Start Date Code Code System Note Provider Name and Address Organization Details Recorded Time 40876 tetracycl ine medicatio n rash Not available Not available 09/24/2022 44693 RxNorm Not Available [facility] 3 06:57:14 Medications Name Sig Start Date Stop Date Status Note LastModified by Organization Details LastModified Time amoxicillin 500 mg capsule TAKE ONE CAPSULE BY MOUTH EVERY 12 HOURS FOR 10 DAYS 03/09 completed Not Available Not Available Not Available ibuprofen 800 mg tablet TAKE 1 TABLET BY MOUTH THREE TIMES A DAY NEEDED FOR PAIN active Not Available Not Available No t Available Medrol (Aleks) 4 mg tablets in a dose pack Take 5 tabs day one, 4 tabs day two, 3 tabs day three, 2 tabs day four, 1 tab day five 2022 active Not Available Not Available Not Avai lable prednisone 20 mg tablet 2 po qday with food in AM x 5 days active Not Available Not Available No t Available spironolact one 100 mg tablet active Not Available Not Available Not Available methylpredn isolone 4 mg tablet TAKE 5 TABS DAY ONE, 4 TABS DAY TWO, 3 TABS DAY THREE, 2 TABS DAY FOUR, 1 TAB DAY FIVE active Not Available Not Available No t Available clindamycin HCl 150 mg capsule TAKE 1 CAPSULE BY MOUTH 4 TIMES A DAY active Not Available Not Available No t Available triamcinolo ne acetonide 0.1 % topical cream APPLY A THIN LAYER TO THE AFFECTED AREA(S) BY TOPICAL ROUTE 2 TIMES PER DAY prn rash 04/17 completed Not Available Not Available Not Available acyclovir 800 mg tablet Take 1 tablet 5 times a day by oral route for 7 days. active Not Available Not Available No t Available triamcinolo ne acetonide 40 mg/mL suspension for injection 1 ml IM x 1 2022 active Not Available Not Available Not Avai lable ferrous sulfate 325 mg (65 mg iron) tablet Take 1 tablet twice a day by oral route. 11/06 completed Not Available Not Available Not Available Clindagel 1 % topical gel, once daily active Not Available Not Available Not Available norethindro ne acetate 5 mg tablet TAKE 1 TABLET BY MOUTH EVERY DAY active Not Available Not Available No t Available duloxetine 60 mg capsule,del ayed release 05/31 completed Not Available Not Available Not Available ferrous sulfate 324 mg (65 mg iron) tablet,sravani yed release 1 po qhs with food 05/31 completed Not Available Not Available Not Available fluticasone propionate (bulk) 100 % powder active Not Available Not Available Not Available GaviLyte-G 236 gram-22.74 gram-6.74 gram-5.86 gram oral solution 04/17 completed Not Available Not Available Not Available Doryx 200 mg tablet,sravani yed release active Not Available Not Available Not Available Fluzone Quad (PF) 60 mcg(15 mcgx4)/0.5 mL intramuscul ar syringe TO BE ADMINISTE RED BY PHARMACIS T FOR IMMUNIZAT ION active Not Available Not Available No t Available Fluzone Quad (PF) 60 mcg (15 mcg x 4)/0.5 mL IM syringe TO BE ADMINISTE RED BY PHARMACIS T FOR IMMUNIZAT ION active Not Available Not Available No t Available Vitals Date Recorded Body mass index (BMI) Body height Oxygen saturation Oxygen saturation in Arterial blood by Pulse oximetry Heart rate Body temperature Body weight Systolic blood pressure Diastolic blood pressure Provider Name and Address Organization Details Last Updated DateTime 2 24 kg/m2 172.72 cm 98 % 98 % 98 /min 98 [degF] 34479.5 9 g 110 mm[Hg] 60 mm[Hg] Not Available [facility] 3 06:46:08 Date Recorded Body mass index (BMI) Body height Oxygen saturation Oxygen saturation in Arterial blood by Pulse oximetry Heart rate Body temperature Body weight Systolic blood pressure Diastolic blood pressure Provider Name and Address Organization Details Last Updated DateTime 2 23.3 kg/m2 172.72 cm 99 % 99 % 83 /min 98.5 [degF] 05783.6 3 g 118 mm[Hg] 78 mm[Hg] Not Available [facility] 3 06:46:08 Date Recorded Body mass index (BMI) Body height Body temperature Body weight Systolic blood pressure Diastolic blood pressure Provider Name and Address Organization Details Last Updated DateTime 1 24.3 kg/m2 172.72 cm 98.1 [degF] 85407.7 8 g 116 mm[Hg] 66 mm[Hg] Not Available [facility] 3 06:46:08 Social History Question Answer Notes LastModified by Organizat ion Details LastModified Time Tobacco Smoking Status Never Smoker Not Available [facility] 09/24/2022 06:41:13 Do You Have An Advance Directive? No [id number] Information not available 09/24/2022 What Is Your Level Of Caffeine Consumption? Occasional [id number] Information not available 09/24/2022 Are There Any Guns Present In Your Home? No [id number] Information not available 09/24/2022 What Is Your Relationship Status? [id number] Information not available 09/24/2022 Do You Use Your Seat Belt Or Car Seat Routinely? Yes [id number] Information not available 09/24/2022 Do You Use Sunscreen Routinely? Yes [id number] Information not available 09/24/2022 Sex: Female Functional Status Question Answer Note LastModified by Organizat ion Details LastModified Time Do you use any illicit or recreational drugs? No [id number] Information not available 09/24/2022 What is your level of alcohol consumption? None [id number] Information not available 09/24/2022 What is your exercise level? Moderate [id number] Information not available 09/24/2022 Mental Status None recorded. Family History Relationship Description Onset Age of this Age Resolved Age Notes LastModified by Organization Details LastModified Time Father Diabetes mellitus insuli n depend ent [id number] Not available 09/24/2022 06:41:41 Mother Diabetes mellitus [id number] Not available 09/24/2022 06:41:41 Paternal Aunt Malignant tumor of breast [id number] Not available 09/24/2022 06:41:41 Notes:No colon, no ovary can cer Medical History Condition Response ALLERGIES/HAYFEVER Y ANEMIA/BLOOD DISORDER Y Gynecological History Statement/Question Response Abnormal Pap Y Date of Last Mammogram 08/14/2018 Date of LMP Date of Last Pap 06/16/2016 Date of Last Pap Smear 05/24/2021 Current Control Method None Age at Menarche 11 Most Recent Mammogram 08/14/2018 Obstetrics History GPAL:G 3 P 3 0 0 3 Type Value Full Term 3 Living 3 Total 3 Immunizations Vaccine Type Date Status Note Provider Nam e and Address Organization Details Recorded Time Influenza, split virus, quadrivalent, PF 2 completed Not Available [facility] 09/24/2022 06:57:00 Influenza, split virus, quadrivalent, preservative 9 completed Not Available [facility] 09/24/2022 06:57:00 Past Encounters Encounter ID Performer Location Encounter Start Date Encounter Closed Date Diagnosis/Indication Diagnosis SNOMED-CT Code Diagnosis ICD10 Code Diagnosis Note [id number] Cee Jay MD [facility] [place] chow [address] [place] [address] [address] [facility] [place] [address] 11/06/2020 00:00:00 11/21/2020 21:19:13 [id number] [facility] _ATHENA_M IGRATION_ DEFAULT_1 _1 , 05/24/2021 00:00:00 05/24/2021 10:35:41 [id number] Cee Jay MD [facility] Primary [facility] [place] [address] [facility] [address] [place] [address] 12/09/2021 00:00:00 12/23/2021 21:01:34 [id number] Cee Jay MD [facility] Primary [facility] [place] [address] [facility] [address] [place] [address] 02/25/2022 00:00:00 03/24/2022 17:50:45 [id number] Cee Jay MD [facility] Primary [facility] [place] [address] [facility] [address] [place] [address] 04/17/2022 00:00:00 04/22/2022 19:19:37 [id number] [facility] [facility] [place] [address] [facility] [address] [place] [address] 01/02/2023 15:11:44 01/02/2023 15:58:49 Health Concerns Section Related Observation LastModified by Organization Detai ls LastModified Time None Recorded Concern Status LastModified by Organization Details LastModified Time None Recorded Advance Directives Directive N: Payers Encounter Date Sequence Insurance Name Policy Number Policy Farmer Covered Member ID Farmer Member ID Guarantor Name 01/02/2023 1 [id number] Mabel Faustin [id number] Mabel Faustin OBGyfranchesca Episode No OBEpisode recorded.
--- OUTSIDE RECORDS SUMMARY | 2025-01-02 15:14 | XMS_ITS | Clinical Summary ---
Author Organization [facility] Administrative Offices Address [address] [place] [id number] Care Team Providers Care Audio Visual Manager Name Role Phone Cee Jay MD Primary Care Provider + Allergies Active Allergy Reactions Criticality Noted Date Comments Tetracyclines Rash Low 01/18/2020 Medications ferrous sulfate 325 mg (65 mg iron) tablet Take 18 mg by mouth daily. Active ascorbic acid (VITAMIN C) 100 mg Tablet, Chewable Take 100 mg by mouth daily. Active cholecalciferol , Vitamin D3, 125 mcg (5,000 unit) Capsule Take 10,000 Units by mouth daily. Active vitamin D3/vitamin K2, MK4, (K2 PLUS D3 ORAL) Take by mouth. Activ e multivitamin (DAILY-BRII) tablet Take 1 Tablet by mouth daily. Active infusion set for insulin pump (T:30 INFUSION SET MISC) by [facility].(Non-Drug ; Combo Route) route daily. T3 T4 Liothy levothy 10/40 mcg ar caps Active prasterone, dhea, 10 mg Tablet Take by mouth daily. DHEA/ Prog 10/110mg RESIDENTIAL capsule Active ESTRADIOL VAGINAL Insert 30 mg vaginally daily. Active Active Problems Problem Noted Date Diagnosed Date Iron deficiency anemia 05/24/2020 Encounters Date Type Department Care Team Description 12/15/2024 External Device Data [facility] ABSTRACTION Provider, Abstract 12/14/2024 External Device Data [facility] ABSTRACTION Provider, Abstract 12/13/2024 External Device Data [facility] ABSTRACTION Provider, Abstract 11/08/2024 External Device Data [facility] ABSTRACTION Provider, Abstract 10/12/2024 External Device Data [facility] ABSTRACTION Provider, Abstract from Last 3 Months Family History Medical History Relation Name Comments Diabetes Father Diabetes Mother Relation Name Status Comments Brother 1 Alive Brother 2 Alive Daughter 1 Alive Daughter 2 Alive Father Alive Mother Alive Son Alive Social History Tobacco Use Types Packs/Day Years Used Date Smoking Tobacco: Never Smokeless Tobacco: Never Tobacco Cessation:Counseling Given: Not Answered Alcohol Use Standard Drinks/Week Comments Yes 0 (1 standard drink = 0.6 oz pur e alcohol) OCCASSIONLLY TWICE A YEAR Comments No Sex and Gender Information Value Date Recorded Sex Assigned at Not on file Legal Sex Female 11:55 AM CDT Gender Identity Not on file Sexual Orientation Not on file Last Filed Vital Signs Vital Sign Reading Time Taken Comments Blood Pressure 99/78 06/29/2024 2:46 PM REPRODUCTIVE SURGEON Pulse 71 06/29/2024 2:46 PM REPRODUCTIVE SURGEON Temperature 36.7 C (98 F) 06/29/2024 2:46 PM REPRODUCTIVE SURGEON Respiratory Rate 16 06/29/2024 2:46 PM REPRODUCTIVE SURGEON Oxygen Saturation 97% 06/29/2024 2:46 PM REPRODUCTIVE SURGEON Inhaled Oxygen Concentration - - Weight 74.4 kg (164 lb) 06/29/2024 2:46 PM REPRODUCTIVE SURGEON Height 172.7 cm (5' 8) 04/11/2022 10:33 AM CDT Body Mass Index 24.94 04/11/2022 10:33 AM CDT Plan of Treatment Upcoming Encounters Date Type Department Care Team (Late st Contact Info) Description 01/04/2025 3:30 PM CDT Office Visit [facility] Oncology and Hematology - [place] [address] [facility] [address] [place] [address] Bradley Willoughby MD [address] [facility] [address] [place] [address] Health Maintenance Due Date Last Done Comments DTAP/TDAP/TD VACCINES (1 - Tdap) 09/28/1991 HEPATITIS B VACCINES (1 of 3 - 19+ 3-dose series) 09/28/1991 HPV/Cotest (21-29) 1993 CERVICAL CANCER SCREENING 2002 HPV/Cotest (30-65) 2002 PAP SMEAR 2002 COLORECTAL SCREENING 2017 Colorectal Cancer Screening 2017 FIT-DNA Q 3 years 2017 FIT/FOBT Q 1 year 2017 Flex Sig/CT Colonography Q 5 years 2017 ZOSTER VACCINE (1 of 2) 2022 INFLUENZA VACCINE (#1) 2024 04/17/2022, 2018 BREAST CANCER SCREENING 07/29/2025 07/29/19, 09/25/2022, 08/22/2022, Additional history exists Procedures Procedure Name Priority Date/Time Associated Diagnosis Comments MAMMO 3D ELOISE SCREEN BILAT W OR WO CAD Routine 07/29/2024 3:25 PM REPRODUCTIVE SURGEON Visit for screening mammogram from Last 3 Months or Most Recently Relevant to Health Maintenance Results * MAMMO 3D ELOISE SCREEN BILAT W OR WO CAD (07/29/2024 3:25 PM REPRODUCTIVE SURGEON) Anatomical Region Laterality Modality Breast Bilateral Mammography 07/29/2024 3:25 PM REPRODUCTIVE SURGEON Impressions 08/01/2024 7:32 AM REPRODUCTIVE SURGEON IMPRESSION: Negative RECOMMENDATIONS: Bilateral annual screening mammogram OVERALL FINAL ASSESSMENT: BI-RADS CATEGORY 1 - Negative DICTATION LOCATION: [facility] 08/01/2024 7:32 AM REPRODUCTIVE SURGEON BILATERAL SCREENING DIGITAL MAMMOGRAMS WITH COMPUTER ASSISTED DIAGNOSIS WITH TOMOGRAPHY DATE: 07/29/2024 3:25 PM HISTORY: Routine screening mammogram. COMPARISON: 11/07/2022, 10/05/2022 and 08/22/2022 TECHNIQUE: A bilateral screening mammogram was performed. Low-dose full-field digital breast tomosynthesis examination was performed with 2D and 3D acquisitions. Examination is read in conjunction with computer aided detection. BREAST COMPOSITION: Heterogeneously dense, which limits the sensitivity of mammography. FINDINGS: No new masses, suspicious calcifications or areas of asymmetry or distortion are identified. The images were reviewed using the CAD system. Procedure Note Cristal Casas MD - 08/01/2024 BILATERAL SCREENING DIGITAL MAMMOGRAMS WITH COMPUTER ASSISTED DIAGNOSIS WITH TOMOGRAPHY DATE: 07/29/2024 3:25 PM HISTORY: Routine screening mammogram. COMPARISON: 11/07/2022, 10/05/2022 and 08/22/2022 TECHNIQUE: A bilateral screening mammogram was performed. Low-dose full-field digital breast tomosynthesis examination was performed with 2D and 3D acquisitions. Examination is read in conjunction with computer aided detection. BREAST COMPOSITION: Heterogeneously dense, which limits the sensitivity of mammography. FINDINGS: No new masses, suspicious calcifications or areas of asymmetry or distortion are identified. The images were reviewed using the CAD system. IMPRESSION: Negative RECOMMENDATIONS: Bilateral annual screening mammogram OVERALL FINAL ASSESSMENT: BI-RADS CATEGORY 1 - Negative DICTATION LOCATION: [facility] Bradley Willoughby MD MAMMO ORDERABLES Final Result from Last 3 Months or Most Recently Relevant to Health Maintenance Care Teams Audio Visual Manager Relationship Specialty Start Date End Date Cee Jay MD [address] [place] [address] PCP - General Family Practice 08/24/18
--- OUTSIDE RECORDS SUMMARY | 2025-01-02 15:14 | XMS_ITS | Continuity of Care Document ---
Author Organization [facility] Address [address] [facility] [address] [place] [address] Phone Care Team Providers Care Registered Occupational Therapist Name Role Phone Brian Estrella MD Unavailable Unavailable Procedures Procedure Date Office/outpatient Visit, [facility] Advance Directives Directive Yes / No Effective Date File Name No Information Encounters Encounter Description Practice Location Reason(s) For Visit Diagnoses Date Provider Providers Copied on Encounter Office/outpat ient Visit, [facility], [address] [place], [place], [id number], [place] tel:[phone] [facility] No Information [address] [facility] [address], [place], [place], [id number], [place]. tel:[phone] Family History Family Member Type Diagnosis Age At Onset No Information Payers Payer name Insurance type Covered libertarian ID Authoriza tion(s) No Information Social History Type Description Quantity Date Captured Comments Sex Female Smoking Status No Information Chief Complaint And Reason For Visit No Information Reason For Referral Reason For Referral No Information History Of Present Illness Encounter Date Complaint History Of Prese nt Illness No Information Functional Status Date Functional Assessmen t No Information Instructions Date Instruction Additional Infor mation No Information Assessments Type Assessment Date No Information Patient Care Teams Name Effective Dates (start - stop) Status Members No Information
[2025-01-02 16:50] LABS: Anion Gap 9 mmol/L (4-12); Blood Urea Nitrogen 19 mg/dL (7-17); Calcium 9.1 mg/dL (8.4-10.2); Carbon Dioxide 27 mmol/L (22-30); Chloride 103 mmol/L (98-107); Estimated Glomerular Filt Rate > 60; Glucose 91 mg/dL (65-110); Potassium 3.4 mmol/L (3.4-5.0); Sodium 139 mmol/L (137-145)
[2025-01-02 16:59] LABS: Iron 127 ug/dL (37-170)
[2025-01-02 17:21] LABS: Percent Iron Saturation 43 % (20-50)
[2025-01-02 19:36] LABS: Vitamin D 25 Hydroxy 17.7 ng/mL
== END 2025-01-02 13:58 | disposition home or self-care (01) ==
LOC: ANHLAB 13:58
PROVIDERS: PCP Nurse Practitioner Family; Visit Provider Internal Medicine Hematology & Oncology
DX: D64.9 Anemia, unspecified (principal); E55.9 Vitamin D deficiency, unspecified
CPT/HCPCS: 36415; 80048; 82306; 82607; 82728; 82746; 83540; 83550; 85027

== ENCOUNTER 2025-01-14 12:25 | Outpatient (CLI) | payer BC, SELFPAY ==
--- NOTE | 2025-01-14 12:30 | ECG_ITS ---
Test Date: 2025-01-14 12:48:10 Measurements Intervals [place] Rate: 63 P: 31 NE: 156 QRS: 12 QRSD: 81 T: 28 QT: 395 QTc: 405 Interpretive Statements SINUS RHYTHM NORMAL ECG No previous ECG available for comparison Electronically Signed On 01-14-2025 13:45:29 CDT by Florentino Fatima D.O.
== END 2025-01-14 12:26 | disposition home or self-care (01) ==
LOC: ANHCARD 12:28
PROVIDERS: PCP Nurse Practitioner Family; Visit Provider Nurse Practitioner Family
DX: Z13.6 Encounter for screening for cardiovascular disorders (principal)
CPT/HCPCS: 93005

== ENCOUNTER 2025-07-05 15:43 | Outpatient (CLI) | payer OTHER, SELFPAY ==
[2025-07-05 16:32] LABS: Hematocrit 43.1 % (37.0-47.0); Hemoglobin 14.5 g/dL (12.0-15.0); Mean Corpuscular HGB Conc 33.6 g/dl (32-36); Mean Corpuscular Hemoglobin 31.9 pg (26-34); Mean Corpuscular Volume 94.7 fl (80-100); Platelet Count Result 212 k/mm3 (150-375); Red Blood Count 4.55 M/mm3 (4.2-5.4); White Blood Count 4.8 K/mm3 (4.5-10.0)
[2025-07-05 17:02] LABS: Iron 107 ug/dL (37-170)
[2025-07-05 17:47] LABS: Ferritin 169.00 ng/mL (11.1-264)
[2025-07-05 17:53] LABS: Percent Iron Saturation 38 % (20-50)
[2025-07-05 18:07] LABS: Vitamin B12 602.0 pg/mL (239-931)
== END 2025-07-05 15:44 | disposition home or self-care (01) ==
LOC: ANHLAB 15:44
PROVIDERS: PCP Nurse Practitioner Family; Visit Provider Internal Medicine Hematology & Oncology
DX: D64.9 Anemia, unspecified (principal); E55.9 Vitamin D deficiency, unspecified
CPT/HCPCS: 36415; 82306; 82607; 82728; 82746; 83540; 83550; 85027